=== PATIENT | male | born 1990 | race Two or more races ===

== ENCOUNTER 2019-03-16 07:14 | Day surgery (SDC) | payer OTHER | END 2019-03-16 13:20 | disposition home or self-care (01) | LOC: CIR.AMB 07:14 | DX: N43.2 Other hydrocele (principal); Z30.2 Encounter for sterilization; N43.41 Spermatocele of epididymis, single ==

== ENCOUNTER → 2023-03-30 | Emergency (ER) | payer OTHER ==
[~2023-03-30] VITALS: Ht 170.2 cm; Wt 102.1 kg
== END | disposition left against medical advice (07) ==
LOC: ER 18:54
DX: Z53.21 Procedure and treatment not carried out due to patient leaving prior to being seen by health care provider (principal)